=== PATIENT | female | born 1990 | race Caucasian/White ===

== ENCOUNTER 2016-12-29 00:09 | Emergency (ER) | payer SELFPAY ==
[~2016-12-29] VITALS: Ht 180.3 cm; Wt 153.5 kg
[2016-12-29 00:22] VITALS: Ht 180.3 cm; Wt 153.5 kg
--- NOTE | 2016-12-29 01:25 | RADRPT ---
PROCEDURE: X-ray right ankle CLINICAL INDICATION: Medial posterior right ankle pain. TECHNIQUE: 3 views right ankle COMPARISON: None FINDINGS: No acute fracture or dislocation. Plantar and posterior dorsal calcaneal enthesophytes. Soft tissu es unremarkable. IMPRESSION: No acute fracture. RPTAT: [facility] Physician Eze Date Time Electronically viewed and signed by Rene Silveira Physician on 12/29/2016 01:25 RS/
--- NOTE | 2016-12-29 01:26 | RADRPT ---
PROCEDURE: X-ray right foot CLINICAL INDICATION: Medial posterior right ankle and foot pain. TECHNIQUE: 3 views right foot COMPARISON: None FINDINGS: No acute fracture or dislocation. Plantar are and posterior dorsal calcaneal enthesophytes. Soft t issues are unremarkable. IMPRESSION: No acute fracture. RPTAT: [facility] Physician Eze Date Time Electronically viewed and signed by Rene Silveira Physician on 12/29/2016 01:25 RS/
[2016-12-29] MEDS ORDERED: ACET325T33 PO (02:05)
--- NOTE | 2016-12-29 02:10 | ERD ---
ER Documentation Chief Complaint Date/Time DATE: 12/29/16 TIME: 02:08 Chief Complaint right ankle pain,no trauma HPI 26-year-old female patient with no significant past medical history presents to the ED complaining of right posterior ankle pain that started earlier today. 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 Denies any trauma or injuries. Reports that she has been taking Tylenol. States that she has one kidney. Denies any fever, chills, loss of sensation, loss of range of motion, weakness, numbness or tingling. ROS All systems reviewed and are negative except as per history of present illness. 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 In no acute distress. Head: Atraumatic, normocephalic Eyes: Normal Conjunctiva without injection ENT: Normal external ear, nose and mouth. Neck: Full range of motion. No meningismus. Resp: Clear to auscultation bilaterally. No wheezing, rhonchi, rales, or crackles. No accessory muscle use. No retractions. Cardio: Regular rate and rhythm, no murmurs Skin: No petechiae or rashes Back: No midline tenderness. No CVA tenderness. Ext: No cyanosis, or edema. Cap refill less than 2 seconds. Distal pulses intact bilaterally. Normal Homans sign. Achilles tendon intact. Tenderness to palpation of the Achilles tendon. Slight edema noted. No erythema. No fluctuance or induration. No lymphatic streaking. Neur: Awake and alert. Normal gait and coordination. Muscle strength 5/5. Sensation intact bilaterally. Psych: Normal Mood and Affect Procedures/MDM This is a 26-year-old female patient with no significant past medical history presents the ED complaining of right posterior ankle pain. Patient is afebrile and nontoxic-appearing. Patient has normal vital signs. A right ankle and foot x-ray was ordered to further evaluate patient. PROCEDURE: X-ray right ankle CLINICAL INDICATION: Medial posterior right ankle pain. TECHNIQUE: 3 views right ankle COMPARISON: None FINDINGS: No acute fracture or dislocation. Plantar and posterior dorsal calcaneal enthesophytes. Soft tissues unremarkable. IMPRESSION: No acute fracture. PROCEDURE: X-ray right foot CLINICAL INDICATION: Medial posterior right ankle and foot pain. TECHNIQUE: 3 views right foot COMPARISON: None FINDINGS: No acute fracture or dislocation. Plantar are and posterior dorsal calcaneal enthesophytes. Soft tissues are unremarkable. IMPRESSION: No acute fracture. Patient is placed in a Luis wrap. Crutches were given to patient to help with ambulation. Splint Assessment: Neurovascularly intact luis wrap placement with good fit. Patient's extremity symptoms have stabilized while they have been evaluated in the department and are appropriate for outpatient follow up. No evidence of fractures, dislocations, compartment syndrome, neurologic injury, vascular injury, open joint, open fracture, tendon laceration, septic arthritis, osteomyelitis, DVT, foreign body, or other emergent conditions. Discharge medications: Tylenol Follow up with primary care physician in 1-2 days. Instructed patient to return to the ED sooner for any worsening symptoms. Patient's questions were answered. Patient understood and agreed with discharge plan. Patient discharged stable. Departure Diagnosis: Primary Impression: Ankle pain Laterality: right Chronicity: unspecified Qualified Code: M25.571 - Right ankle pain, unspecified chronicity Condition: Stable Patient Instructions: Treating Tendonitis of the Foot, Tendonitis Referrals: COMMUNITY CLINICS YOU HAVE RECEIVED A MEDICAL SCREENING EXAM AND THE RESULTS INDICATE THAT YOU DO NOT HAVE A CONDITION THAT REQUIRES URGENT TREATMENT IN THE EMERGENCY DEPARTMENT. FURTHER EVALUATION AND TREATMENT OF YOUR CONDITION CAN WAIT UNTIL YOU ARE SEEN IN YOUR DOCTORS OFFICE WITHIN THE NEXT 1-2 DAYS. IT IS YOUR RESPONSIBILITY TO MAKE AN APPOINTMENT FOR FOLOW-UP CARE. IF YOU HAVE A PRIMARY DOCTOR --you should call your primary doctor and schedule an appointment IF YOU DO NOT HAVE A PRIMARY DOCTOR YOU CAN CALL OUR PHYSICIAN REFERRAL HOTLINE AT IF YOU CAN NOT AFFORD TO SEE A PHYSICIAN YOU CAN CHOSE FROM THE FOLLOWING [facility] [address] [facility] [place] [address] [facility] [address] [facility] [address] [facility] [address] [facility]. [facility] [address] [facility]. [facility] YOU HAVE RECEIVED A MEDICAL SCREENING EXAM AND THE RESULTS INDICATE THAT YOU DO NOT HAVE A CONDITION THAT REQUIRES URGENT TREATMENT IN THE EMERGENCY DEPARTMENT. FURTHER EVALUATION AND TREATMENT OF YOUR CONDITION CAN WAIT UNTIL YOU ARE SEEN IN YOUR DOCTORS OFFICE WITHIN THE NEXT 1-2 DAYS. IT IS YOUR RESPONSIBILITY TO MAKE AN APPOINTMENT FOR FOLOW-UP CARE. IF YOU HAVE A PRIMARY DOCTOR --you should call your primary doctor and schedule and appointment IF YOU DO NOT HAVE A PRIMARY DOCTOR YOU CAN CALL OUR PHYSICIAN REFERRAL HOTLINE AT . IF YOU CAN NOT AFFORD TO SEE A PHYSICIAN YOU CAN CHOSE FROM THE FOLLOWING [facility]: [facility] [address] [place] [address] [facility] [address] [place] [address] [facility] [address] [place] [address] [facility] Urgent Care 7 a.m.- 11 p.m. Every Day of the Week NO APPOINTMENT OR AUTHORIZATION NEEDED SO [facility] Hours: Mon-Fri 9:00 AM - 5:00 PM Additional Instructions: Call your primary care doctor TOMORROW for an appointment during the next 2-3 days for a referral to see an orthopedic physician and physical therapist.See the doctor sooner or return here if your condition worsens before your appointment time. OSMEL CARABALLO PA-C Dec 29, 2016:10
== END 2016-12-29 02:22 | disposition home or self-care (01) ==
LOC: FTE 00:09
DX: M25.571 Pain in right ankle and joints of right foot (principal); F17.210 Nicotine dependence, cigarettes, uncomplicated
CPT/HCPCS: 73630